=== PATIENT | male | born 1995 | race Caucasian/White ===

== ENCOUNTER → 2021-02-03 14:59 | Outpatient (CLI) | payer OTHER, SELFPAY ==
[2021-02-03] MEDS: COVID-19 VACC, Ad26(JANSSEN)/PF 0.5 ML IM (15:11)
== END ==
PROVIDERS: PCP Family Medicine; Visit Provider Internal Medicine
DX: Z23 Encounter for immunization (principal)
CPT/HCPCS: 0031A; 91303

== ENCOUNTER 2025-01-28 07:51 | Emergency (ER) | payer SELFPAY ==
[2025-01-28] VITALS (7 sets, daily range): BP systolic 133–149; BP diastolic 83–91; PULSE 78–85; RESP 18–24; TEMP 37.2; O2SAT 96–100; BMI 28.3
--- NOTE | 2025-01-28 08:01 | DI.RAD.S_ITS ---
PROCEDURE: XR CHEST 2V INDICATIONS: chest pain TECHNIQUE: 2 views of the chest were acquired. COMPARISON: None. FINDINGS: Surgical changes and devices: None. Lungs and pleura: Lungs are clear. No pleural effusions or pneumothorax. Mediastinum: Mediastinal contours are normal. Heart size is normal. Bones and chest wall: No suspicious bony abnormalities. Soft tissues appear unremarkable. IMPRESSION: No acute pulmonary process. Dictated by: Leana Puga M.D. on 01/28/2025 at 8:35 Approved by: Leana Puga M.D. on 01/28/2025 at 8:35
--- NOTE | 2025-01-28 08:01 | EKG_ITS ---
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
--- NOTE | 2025-01-28 08:17 | ED_ITS ---
HPI - Chest Pain General Chief Complaint: Chest Pain Stated Complaint: Mild chest pain Time Seen by Provider: 01/28/25 08:01 Source: patient and family Mode of arrival: Ambulatory Limitations: no limitations History of Present Illness HPI narrative: Patient is a healthy 29-year-old male and female transgender presenting today with right-sided chest pain. She states that she rolled over last night heard having chest pain on the right side. Sometimes it comes and goes but it is reproducible on the right side. No radiation no shortness of breath he was she was not taking hormones. Related Data Allergies Allergy/AdvReac Type Severity Reaction Status Date / Time No Known Drug Allergies Allergy Verified 01/28/25 08:39 Patient History Social History Smoking Status: Never smoker Smoking Status: Never smoker Exam Initial Vital Signs Initial Vital Signs: Vital Signs Pulse Rate 85 01/28/25 07:55 Blood Pressure 149/91 H 01/28/25 07:55 Pulse Oximetry 99 01/28/25 07:55 GENERAL: Well-appearing, well-nourished and in no acute distress. HEENT: Head atraumatic,EOMI, pupils reactive, face symmetric, moist mucous membranes CARDIOVASCULAR: Regular rate and rhythm without murmurs, rubs or gallops. RESPIRATORY: Breath sounds equal bilaterally, no wheezes rales or rhonchi. Pain right side between ribs 3 and 4 reproducible ABDOMEN: Soft, nontender. Normoactive bowel sounds all 4 quadrants. No guarding or rebound. EXTREMITIES: Normal range of motion, no clubbing or edema. Neurovascularly in tact NEUROLOGICAL: Alert and oriented x4.Normal gait and speech. Cranial nerves II through XII grossly intact. SKIN: Warm, dry, no laceration, no petechiae, no rashes or lesions. Course Orders Ordered: ED Orders 01/28/25 08:01 Chest [XR chest 2V] Stat EKG-12 Lead Stat Discontinued Medications Ketorolac Tromethamine (Ketorolac 30 Mg/Ml Vial) 30 mg IM NOW ONE Stop: 01/28/25 08:25 Last Admin: 01/28/25 08:40 Dose: 30 mg Documented By: KATIE Vital Signs Vital signs: Vital Signs - 8 hr 01/28/25 07:55 01/28/25 07:55 01/28/25 08:00 Temperature Pulse Rate 85 80 Respiratory Rate Blood Pressure 149/91 H Pulse Oximetry 99 97 Oxygen Delivery Method 01/28/25 08:03 01/28/25 08:07 01/28/25 08:07 Temperature 98.9 F Pulse Rate 80 79 Respiratory Rate 18 23 Blood Pressure 149/91 H 133/83 Pulse Oximetry 100 98 Oxygen Delivery Method Room Air 01/28/25 08:31 01/28/25 09:00 01/28/25 09:39 Temperature Pulse Rate 85 78 Respiratory Rate 18 24 Blood Pressure 136/91 H Pulse Oximetry 96 96 Oxygen Delivery Method MDM - Chest Pain Imaging Data Chest x-ray: Radiologist's Impression: PROCEDURE: XR CHEST 2V INDICATIONS: chest pain TECHNIQUE: 2 views of the chest were acquired. COMPARISON: None. FINDINGS: Surgical changes and devices: None. Lungs and pleura: Lungs are clear. No pleural effusions or pneumothorax. Mediastinum: Mediastinal contours are normal. Heart size is normal. Bones and chest wall: No suspicious bony abnormalities. Soft tissues appear unremarkable. IMPRESSION: No acute pulmonary process. Dictated by: Leana Puga M.D. on 01/28/2025 at 8:35 ECG Data Attestation: I personally reviewed and interpreted this ECG as follows: Interpretation: Normal sinus rhythm rate 90 CT interval 162 QRS [address] changes inversions MDM Narrative Medical decision making narrative: Patient 29-year-old male female transgender presenting today with reproducible right-sided chest pain x-ray and EKGs have been reviewed overall reassuring. Give her a shot of Toradol. Both consistent with musculoskeletal costochondritis. Low suspicion for pulmonary embolism not having any sort of shortness a breath. Discharge Plan Departure Patient Disposition: Home Clinical Impression: Acute costochondritis Instructions: DI for Costochondritis Activity Restrictions/Additional Instructions: *You have been diagnosed with costochondritis *What to do: At this time increase activity as tolerated x-ray and EKG overall reassuring. Recommend ice heat Tylenol Motrin as needed *Continue to take medications as directed *Follow up with your primary care provider in 2-3 days or call [phone] *Return to ER if you should have increasing chest pain shortness of breath weakness [or] any new, worsening or concerning symptoms Referrals: Leonardo Mann MD [Primary Care Provider] - Stand Alone Forms: Patient Portal/API/Survey
[2025-01-28] MEDS: KETOROLAC 30 MG/ML VIAL IM (08:40)
== END 2025-01-28 09:39 | disposition home or self-care (01) ==
PROVIDERS: Emergency Provider Emergency Medicine; PCP Family Medicine
DX: M94.0 Chondrocostal junction syndrome [Tietze] (principal)
CPT/HCPCS: 71046; 93005; 96372; 99283; 99284; J1885